=== PATIENT | female | born 1945 | race Caucasian/White ===

== ENCOUNTER → 2018-03-04 10:28 | Outpatient (CLI) | payer MEDICARE, OTHER, SELFPAY ==
--- NOTE | 2018-03-04 | DI.MG.S_ITS ---
BILATERAL DIGITAL SCREENING MAMMOGRAM 3D/2D WITH CAD: 03/04/2018 CLINICAL: Routine screening. Comparison is made to exams dated: 03/05/2017 mammogram, 03/03/2017 mammogram, 02/20/2016 mammogram, and 02/15/2016 mammogram - [facility]. The tissue of both breasts is predominantly fatty. Current study was also evaluated with a Computer Aided Detection (CAD) system. No significant masses, calcifications, or other findings are seen in either breast. There has been no significant interval change. IMPRESSION: NEGATIVE There is no mammographic evidence of malignancy. A 1 year screening mammogram is recommended. This exam was interpreted at Station ID: [id number]. NOTE: For mammograms, a report in lay terms will be sent to the patient. Approximately 15% of breast malignancies will not be visualized mammographically. In the management of a palpable breast mass, a negative mammogram must not discourage biopsy of a clinically suspicious lesion. Electronically Signed By: Reza borges/jayson:03/05/2018 12:35:09 letter sent: Normal Exam ACR BI-RADS Category 1: Negative 3341F
== END ==
PROVIDERS: PCP Internal Medicine; Visit Provider Internal Medicine
DX: Z12.31 Encounter for screening mammogram for malignant neoplasm of breast (principal)
CPT/HCPCS: 77063; 77067

== ENCOUNTER → 2019-03-09 11:49 | Outpatient (CLI) | payer MEDICARE, OTHER, SELFPAY ==
--- NOTE | 2019-03-09 | DI.MG.S_ITS ---
BILATERAL DIGITAL SCREENING MAMMOGRAM 3D/2D WITH CAD: 03/09/2019 CLINICAL: Routine screening. Comparison is made to exam dated: 03/04/2018 [facility]. The tissue of both breasts is predominantly fatty. Current study was also evaluated with a Computer Aided Detection (CAD) system. No significant masses, calcifications, or other findings are seen in either breast. There has been no significant interval change. IMPRESSION: NEGATIVE There is no mammographic evidence of malignancy. A 1 year screening mammogram is recommended. This exam was interpreted at Station ID: [id number]. NOTE: For mammograms, a report in lay terms will be sent to the patient. Approximately 15% of breast malignancies will not be visualized mammographically. In the management of a palpable breast mass, a negative mammogram must not discourage biopsy of a clinically suspicious lesion. Electronically Signed By: Keyur vo/jayson:03/09/2019 20:19:36 letter sent: Normal Exam ACR BI-RADS Category 1: Negative 3341F
== END ==
PROVIDERS: PCP Internal Medicine; Visit Provider Internal Medicine
DX: Z12.31 Encounter for screening mammogram for malignant neoplasm of breast (principal)
CPT/HCPCS: 77063; 77067

== ENCOUNTER 2019-06-08 12:47 | Emergency (ER) | payer MEDICARE, OTHER, SELFPAY ==
[2019-06-08 12:54] VITALS: BP 188/96; PULSE 68; RESP 15; TEMP 36.4; O2SAT 98; BMI 20.7
[2019-06-08 14:01] VITALS: BP 166/98; PULSE 77; RESP 16; O2SAT 100
--- NOTE | 2019-06-08 14:12 | PC.NURSE ---
Pt sent from Dr. Neville's office for HTN. initial BP 188/96, rechecked after 1.5 hours and 166/systolic. [employer] in to consult. pt states she does not normally have high BP and does not take any medications for it. denies CP denies SOB reports she feels anxious. Appears well. Has a tremor which she reports she gets when her anxiety is increased.
--- NOTE | 2019-06-08 14:19 | ED_ITS ---
HPI - General Adult <Maverick PlattJARRET Iverson - Last Filed: 06/08/19 23:12> General Chief complaint: Hypertension Stated complaint: dr jones sent from clinic,blood pressure bad Time Seen by Provider: 06/08/19 13:53 Source: patient Mode of arrival: Ambulatory Limitations: no limitations History of Present Illness HPI narrative: This is a 74-year-old female, nonsmoker, who presents to ED with chief complain of elevated blood pressure. Patient was referred to Dr. Jones at [facility] for evaluation for hypertension. Patient is being evaluated by Dr. Jones currently for anxiety and OCD. Patient was taking herself from Paxil due to decreased ability to concentrate and being follow-up with Dr. Jones. Patient has increased stress with marital problems last couple of days and her h usband is requesting a divorce which has been increasing her situational stress. Patient denies chest pain, dyspnea, vision difficulty, nausea or vomiting, balance problem, speech difficulty, or headache. Patient repeatedly requesting to go home. Related Data Home Medications Medication Instructions Recorded Confirmed ascorbic acid (vitamin C) 500 mg mg PO 05/11/19 06/08/19 capsule calcium carbonate 600 mg calcium 1,200 mg PO DAILY 05/11/19 06/08/19 (1,500 mg) tablet levothyroxine 50 mcg capsule 50 mcg PO DAILY 05/11/19 06/08/19 magnesium 30 mg tablet 30 mg PO DAILY 05/11/19 06/08/19 multivitamin 1 tab PO DAILY 05/11/19 06/08/19 simvastatin 20 mg tablet 20 mg PO DAILY 05/11/19 06/08/19 paroxetine HCl 10 mg PO DAILY 06/08/19 06/08/19 Allergies Allergy/AdvReac Type Severity Reaction Status Date / Time No Known Drug Allergies Allergy Verified 06/08/19 12:54 Review of Systems <Maverick JvJARRET [place] - Last Filed: 06/08/19 23:12> Review of Systems Narrative: General: Denies fever, chills, fatigue, malaise, sweats. HEENT: Denies sinus pain, ear pain, sore throat, difficulty swallowing, dizziness. Respiratory: Denies dyspnea, cough, wheezing, hemoptysis, sputum. Cardiovascular: Denies chest pain, palpitations, orthopnea, edema. Gastrointestinal: Denies nausea, vomiting, abdominal pain, diarrhea, constipation, melena. : Denies dysuria, frequency, incontinence, hematuria, urinary retention. Musculoskeletal: Denies weakness, joint pain or bony pain. Skin: Denies rash, skin lesions, or other. Neurologic: Denies weakness, headache, numbness, change in speech, confusion, seizures, incoordination. Psychiatric: Anxiety 12-point review of systems is negative except for those stated above. Patient History <JARRET Venegas - Last Filed: 06/08/19 23:12> Medical History Hypercholesterolemia (Acute) Social History Smoking Status: Never smoker Exam <JARRET Venegas - Last Filed: 06/08/19 23:12> Narrative Exam Narrative: GEN: Alert, oriented x 3, well appearing and nourished, and in no acute distress. Head: Normal cephalic, atraumatic. No scalp or temporal tenderness, palpable mass or rash. EYES: Pupils are equal, round, and reactive to light and accommodation. Extraocular muscles are intact bilaterally. There is no subconjunctival hemorrhage, exudate and sclera non-icteric. ENT: Bilateral auditory canals and tympanic membranes clear. Hearing grossly intact. Nose without bleeding, purulent discharge or deviation. Facial sinuses nontender to palpate. Mucous membrane moist, no mucosal lesion. Throat without erythema, tonsillar hypertrophy or exudate. Uvula in midline, airway patent. Neck: Trachea in midline. No JVD, non-tender without lymphadenopathy. No masses or thyroid megaly. Supple, non-tender and no meningeal signs. CARDIAC: Normal regular rate and rhythm without murmurs, gallops, or rubs. No chest wall tenderness. No peripheral edema, cyanosis or pallor. Capillary re fill is less than 2 seconds. RESPIRATORY: Lungs are clear to auscultate bilaterally. No cough, wheezes, rales, or rhonchi. No stridor, respiratory distress, increase work of breathing, or accessary muscle used. ABD: Abdomen soft, nontender and non-distended. No guarding or rebound tenderness to palpate. Bowel sounds are normal in all 4 quadrants. There is no palpable masses or organomegaly. EXT: Full painless ROM of all extremities with no loss of sensation, strength, effusion or edema. SKIN: Warm, dry, normal color for patient. No erythema, lesions or rash over visible areas. BACK: Nontender without deformity or crepitance. No flank tenderness. NEUROLOGICAL: Alert and oriented to place, time and person. Sensation and motor function intact bilaterally. No facial droops, dysphasia. PSYCHIATRIC: Good judgement and reason, without hallucinations, abnormal affect or abnormal behaviors during the examination. Patient is not suicidal. Initial Vital Signs Initial Vital Signs: Vital Signs Temperature 97.6 F 06/08/19 12:54 Pulse Rate 68 06/08/19 12:54 Respiratory Rate 15 06/08/19 12:54 Blood Pressure 188/96 H 06/08/19 12:54 Pulse Oximetry 98 06/08/19 12:54 <Marta Wyatt MD - Last Filed: 06/10/19 06:59> Initial Vital Signs Initial Vital Signs: Vital Signs Temperature 97.6 F 06/08/19 12:54 Pulse Rate 68 06/08/19 12:54 Respiratory Rate 15 06/08/19 12:54 Blood Pressure 188/96 H 06/08/19 12:54 Pulse Oximetry 98 06/08/19 12:54 Course <JARRET Venegas - Last Filed: 06/08/19 23:12> Orders Ordered: ED Orders 06/08/19 14:18 EKG-12 Lead Stat Vital Signs Vital signs: Vital Signs - 8 hr 06/08/19 12:54 06/08/19 14:01 Temperature 97.6 F Pulse Rate 68 77 Respiratory Rate 15 16 Blood Pressure 188/96 H Blood Pressure [Left Arm] 166/98 H Pulse Oximetry 98 100 <Marta Wyatt MD - Last Filed: 06/10/19 06:59> Orders Ordered: ED Orders 06/08/19 14:18 EKG-12 Lead Stat Vital Signs Vital signs: Vital Signs - 8 hr 06/08/19 12:54 06/08/19 14:01 Temperature 97.6 F Pulse Rate 68 77 Respiratory Rate 15 16 Blood Pressure 188/96 H Blood Pressure [Left Arm] 166/98 H Pulse Oximetry 98 100 Medical Decision Making <JARRET Venegas - Last Filed: 06/08/19 23:12> Differential Diagnosis Differential Diagnosis: Situational stress, anxiety, hypertension Medical Records Medical records reviewed: Yes I reviewed the patient's medical records. ECG Data Attestation: I personally reviewed and interpreted this ECG as follows: Prior ECG tracings: not available for review Interpretation: Sinus rhythm rate at 62. Normal [place]. No ST elevation or depression. MDM Narrative Medical decision making narrative: This is a 74-year-old female who was referred to emergency room for an evaluation and treatment for hypertension by Dr. Jones at [facility]. Patient denies any symptoms such as chest pain, breathing difficulty, dizziness with the hypertensive crisis she had at the clinic as high as 227/122. Patient states she is under increased stress since her is requesting a divorce 2 days ago with her medical issues. When she arrived to ED, she reports she is feeling a bit better emotionally. Patient's physical exam and neuro exam was benign. Patient declined lab test for chemistry and cardiac enzymes but agrees with EKG and expressed wish to go home to take care of her dog. Patient advised to monitor and track her blood pressure at home to bring this information to her primary care physician's appointment to follow-up on her hypertension. Strict return precautions were discussed with the patient and advised with a close follow-up with her primary care physician. Patient agrees with the treatment plan and verbalized understanding. Patient's blood pressure had improved while in ED and decrease to 166/98 with heart rate of 77. Discharge Plan Departure Patient Disposition: Home Clinical Impression: Hypertension Qualifiers: Hypertension type: unspecified Qualified Code(s): I10 - Essential (primary) hypertension Discharge Date/Time: 06/08/19 14:57 Instructions: DI for High Blood Pressure Activity Restrictions/Additional Instructions: You have been diagnosed with [significantly elevated blood pressure while visiting psychiatrist today when he referred to emergency room for an evaluation. You're blood pressure has improved while in the ED. It has been in 160s to 180s/90s. You did not have symptoms such as chest pain, breathing difficulty, dizziness, headache, vision difficulty, nausea or vomiting. You have declined blood test today but agreed with EKG test which looked normal.]. What to do: *Take your medications as directed. No new medications to go home today *Follow up with your primary care provider in 2-3 days, call for an appointment. Let them know you were seen in the ED and that we asked you to be seen in follow up for evaluation for hypertension. As we discussed, please monitor you're blood pressure at least 3 times a week around the same time and record this readings for you're doctor's appointment. *Return to ED if you have any new, worsening, or concerning symptoms, such as [especially if you have chest pain, breathing difficulty, headache, limb weakness, speech difficulty, vision change, balance problem, facial droops or any other concerns]. Prescriptions: No Action levothyroxine 50 mcg capsule 50 mcg PO DAILY RF: 0 simvastatin 20 mg tablet 20 mg PO DAILY RF: 0 ascorbic acid (vitamin C) 500 mg capsule PO RF: 0 calcium carbonate [Calcium 600] 600 mg calcium (1,500 mg) tablet 1,200 mg PO DAILY RF: 0 multivitamin Tablet 1 tab PO DAILY RF: 0 magnesium 30 mg tablet 30 mg PO DAILY RF: 0 paroxetine HCl 10 mg tablet 10 mg PO DAILY RF: 0 Referrals: Salvador Milton MD [Primary Care Provider] -
== END 2019-06-08 14:57 | disposition home or self-care (01) ==
PROVIDERS: Emergency Provider Nurse Practitioner Family; PCP Internal Medicine
DX: I10 Essential (primary) hypertension (principal); F41.0 Panic disorder [episodic paroxysmal anxiety]; F41.1 Generalized anxiety disorder
CPT/HCPCS: 90833; 93005; 99214; 99282; 99283